=== PATIENT | male | born 1955 | race Hispanic/Latino ===

== ENCOUNTER 2016-11-10 19:20 | Inpatient (IN) | payer MEDICARE ==
--- NOTE | 2016-11-10 19:26 | C.PDOC ---
History Of Present Illness Patient presents to the ER for a possible seizure. states she witnessed seizure like activity, patient does not remember the event. Patient has Hx of NIDDM, non complaint with medication; he is also on xanax which he stopped taking a few days ago. Patient reports he took 2 testosterone pills today that he ordered over the internet. Patient does not seem post ictal; denies dizziness , weakness, numbness, or headache. Time Seen by Provider: 11/10/16 19:26 History Per: Patient History/Exam Limitations: no limitations Recent Seizure Activity Began: Just Before Arrival Number Of Seizures: One Length Of Seizures (Duration): Unknown Quality Of Seizure: Generalized Precipitating Factor(s): Other (Not known) Post-ictal Period: No Severity: None Pain Scale Rating Of: 0 Recent travel outside of the [place]: No Past Medical History Reviewed: Historical Data, Nursing Documentation, Vital Signs Vital Signs: Last Vital Signs Temp 98.7 F 11/10/16 22:53 Pulse 88 11/10/16 22:53 Resp 18 11/10/16 22:53 BP 133/95 H 11/10/16 22:53 Pulse Ox 100 11/10/16 23:57 - Medical History PMH: Diabetes Surgical History: No Surg Hx Family History: States: No Known Family Hx Review Of Systems Constitutional: Negative for: Fever, Chills Eyes: Negative for: Vision Change ENT: Negative for: Throat Pain Cardiovascular: Negative for: Chest Pain Respiratory: Negative for: Shortness of Breath Gastrointestinal: Negative for: Nausea, Vomiting Genitourinary: Negative for: Dysuria Skin: Negative for: Rash Neurological: Positive for: Seizures. Negative for: Weakness, Numbness, Headache, Dizziness Psych: Negative for: Anxiety Physical Exam - Physical Exam Appears: Non-toxic Skin: Warm, Dry Head: Normacephalic Eye(s): bilateral: Normal Inspection, PERRL, EOMI Oral Mucosa: Moist Neck: Supple Chest: Symmetrical, No Tenderness Cardiovascular: Rhythm Regular, No Murmur Respiratory: No Rales, No Rhonchi, No Wheezing Gastrointestinal/Abdominal: Soft, No Tenderness Extremity: No Tenderness Extremity: Bilateral: Atraumatic Pulses: Left Dorsalis Pedis: Normal, Right Dorsalis Pedis: Normal Neurological/Psych: Oriented x3, Normal Speech, Normal Cognition Gait: Steady ED Course And Treatment - Laboratory Results Result Diagrams: 11/10/16 20:04 11/10/16 20:04 ECG: Interpreted By Me, Viewed By Me ECG Rhythm: Sinus Rhythm (81), Nonspecific Changes O2 Sat by Pulse Oximetry: 100 Pulse Ox Interpretation: Normal - CT Scan/US CT Head Other Rad Studies (CT/US): Read By Radiologist, Radiology Report Reviewed CT/US Interpretation: EXAM: CT Head Without Intravenous Contrast. CLINICAL HISTORY: 61 years old, male; Signs and symptoms; Syncope and collapse; Additional info: Seizure. TECHNIQUE: Axial computed tomography images of the head/brain without intravenous contrast. This CT exam. was performed using one or more of the following dose reduction techniques: automated exposure. control , adjustment of the mA and/or kV according to patient size, and/or use of iterative. reconstruction technique. EXAM DATE/TIME: Exam ordered 11/10/2016 7: 48 PM. COMPARISON: No relevant prior studies available. FINDINGS: Brain: Unremarkable. No hemorrhage. No significant white matter disease. No edema. Ventricles: Unremarkable. No ventriculomegaly. Bones/joints: Unremarkable. No acute fracture. Soft tissues: Unremarkable. Sinuses: Unremarkable as visualized. No acute sinusitis. Mastoid air cells: Unremarkable as visualized. No mastoid effusion. IMPRESSION: Normal head/brain CT. Progress Note: Blood work, CT head, EKG, CXR, and urinalysis ordered. Disposition Discussed With : Jose Tomas Comment: accepted the pt on his service and took over the care at 1:37AM Doctor Will See Patient In The: Hospital Counseled Patient/Family Regarding: Studies Performed, Diagnosis - Disposition Disposition: HOSPITALIZED Disposition Time: 19:26 Condition: FAIR - Clinical Impression Clinical Impression: Bipolar 1 disorder, Opioid use disorder, severe, dependence - Scribe Statement The provider has reviewed the documentation as recorded by the Scribe Eddie Ni All medical record entries made by the Scribe were at my direction and personally dictated by me. I have reviewed the chart and agree that the record accurately reflects my personal performance of the history, physical exam, medical decision making, and the department course for this patient. I have also personally directed, reviewed, and agree with the discharge instructions and disposition. Decision To Admit - Pt Status Changed To: Hospital Disposition Of: Inpatient - Admit Certification Admit to Inpatient:: After my assessment, the patient will require hospitalization for at least two midnights. This is because of the severity of symptoms shown, intensity of services needed, and/or the medical risk in this patient being treated as an outpatient. - InPatient: Physician Admission Certification: I certify that this patient requires 2 or more midnights of care for the following reason:: After my assessment, the patient will require hospitalization for at least two midnights. This is because of the severity of symptoms shown, intensity of services needed, and/or the medical risk in this patient being treated as an outpatient. - . Bed Request Type: Psychiatry Admitting Physician: Jose Tomas Patient Diagnosis: Bipolar 1 disorder, Opioid use disorder, severe, dependence
[2016-11-10 20:06] LABS: BASO % 0.5 % (0.0-2.0); EOS # 0.1 K/uL (0.0-0.7); EOS % 1.4 % (0.0-4.0); HEMOGLOBIN 15.3 g/dL (12.0-18.0); LYMPH # 2.1 K/uL (1.0-4.3); LYMPH % 20.7 % (20.0-40.0); MEAN CELL VOLUME 89.7 fL (80.0-94.0); MEAN CORPUSCULAR HEMOGLOBIN 30.7 pg (27.0-31.0); MEAN CORPUSCULAR HGB CONC 34.2 g/dL (33.0-37.0); MEAN PLATELET VOLUME 7.5 fL (7.2-11.7); MONO # 1.1 K/uL (0.0-0.8); MONO % 10.8 % (0.0-10.0); NEUT # 6.7 K/uL (1.8-7.0); NEUT % 66.6 % (50.0-75.0); RBC 4.98 Mil/uL (4.40-5.90); RED CELL DISTRIBUTION WIDTH 12.8 % (11.5-14.5); WHITE BLOOD COUNT 10.1 K/uL (4.8-10.8)
--- NOTE | 2016-11-10 20:29 | CT ---
EXAM: CT Head Without Intravenous Contrast CLINICAL HISTORY: 61 years old, male; Signs and symptoms; Syncope and collapse; Additional info: Seizure TECHNIQUE: Axial computed tomography images of the head/brain without intravenous contrast. This CT exam was performed using one or more of the following dose reduction techniques: automated exposure control, adjustment of the mA and/or kV according to patient size, and/or use of iterative reconstruction technique. EXAM DATE/TIME: Exam ordered 11/10/2016 7:48 PM COMPARISON: No relevant prior studies available. FINDINGS: Brain: Unremarkable. No hemorrhage. No significant white matter disease. No edema. Ventricles: Unremarkable. No ventriculomegaly. Bones/joints: Unremarkable. No acute fracture. Soft tissues: Unremarkable. Sinuses: Unremarkable as visualized. No acute sinusitis. Mastoid air cells: Unremarkable as visualized. No mastoid effusion. IMPRESSION: Normal head/brain CT.
[2016-11-10 20:47] LABS: VENOUS BLOOD GAS BASE EXCESS -2.6 mmol/L (0.0-2.0); VENOUS BLOOD GAS PCO2 46 mmHg (40-60); VENOUS BLOOD GAS PO2 14 mm/Hg (30-55); VENOUS BLOOD PH 7.32 (7.32-7.43)
[2016-11-10 21:26] LABS: ALBUMIN 4.5 g/dL (3.5-5.0)
[2016-11-10 21:29] LABS: ALB/GLOB RATIO 1.6 (1.0-2.1); ALT/SGPT 24 U/L (21-72); AST/SGOT 25 U/L (17-59); BLOOD UREA NITROGEN 20 mg/dL (9-20); GFR AFRICAN-AMERICAN > 60; GFR NON-AFRICAN AMERICAN > 60
[2016-11-10 21:30] LABS: CALCIUM 9.4 mg/dl (8.6-10.4)
[2016-11-10 21:51] LABS: URINE BILIRUBIN NEGATIVE (NEGATIVE); URINE CLARITY Clear (Clear); URINE COLOR Straw (YELLOW); URINE GLUCOSE (UA) NORMAL (Normal); URINE LEUKOCYTE ESTERASE NEG Leu/uL (Negative); URINE NITRATE NEGATIVE (NEGATIVE); URINE PROTEIN NEGATIVE (NEGATIVE); URINE UROBILINOGEN NORMAL mg/dL (0.2-1.0)
[2016-11-10 21:53] LABS: URINE BLOOD TRACE (NEGATIVE)
[2016-11-10] MEDS ORDERED: Sodium Chloride 0.9% 1,000 ML IV ONE ×2 (21:54→22:00)
[2016-11-10 22:22] LABS: BARBITURATES, UR NEGATIVE (NEGATIVE)
[2016-11-10 22:23] LABS: BENZODIAZEPINES, UR NEGATIVE (NEGATIVE)
[2016-11-10 22:26] LABS: OPIATES, UR NEGATIVE (NEGATIVE); PHENCYCLIDINE, UR NEGATIVE (NEGATIVE)
[2016-11-10] MEDS ORDERED: Sodium Chloride 0.9% 2,000 ML ONE (22:28)
[2016-11-11 01:51] VITALS: O2SAT 98
--- NOTE | 2016-11-11 04:22 | PCM.BM ---
<NathanFarhat - Last Filed: 11/11/16 04:20> Treatment Plan Problems - Problems identified on initial assessmt Depression Date Initiated: 11/11/16 Time Initiated: 02:30 Assessment reference: NA Status: Active Benzodiazepene Abuse Date Initiated: 11/11/16 Time Initiated: 02:30 Assessment reference: NA Status: Active Treatment assets and liabiliti Patient Assests: motivated, ADL independent, good support system Patient Liabilities: relationship conflicts, medical problems (Hypertension, Type 2 diabetes) - Milieu Protocol Maintain good personal hygiene: daily Encourage regular showers, daily Remind patient to perform daily oral care Maintain personal safety: every shift Educate patient to report safety concerns to staff, every shift Monitor environment for contraband/sharps Medication safety: Monitor for expected outcome, potential side effects: every shift, Assess barriers to learning: every shift, Assess readiness for medication education: every shift <Marie Simms - Last Filed: 11/11/16 11:49> - Diagnosis (1) Bipolar 1 disorder Status: Acute Interventions: 11/11/16 11:49 * Assess/adjust medications daily and /or as needed * See patient on an individual basis 7x/week to assess level of manic behaviors and stability * Discuss risks, benefits, side effects and alternatives of medications * <Missy Bradley - Last Filed: 11/12/16 10:46> Family Contact Family involvement: Family/SO is involved Family contact: Patient agrees to contact Family contact name: -Laverne Dawson Family contacted how many times per week?: 1 - Goals for Treatment Patient goals for treatment: "I need treatment." Discharge/Continuing Care - Education Needs Education Needs: Patient Medication, Patient Coping Skills, Patient Community resources - Discharge Discharge Criteria: Tolerates medication w/o severe side effects, No longer exhibiting s/s of withdrawal Discharge to:: Home, With Family - Treatment Team Participation Was Patient/Family/SO present at Treatment Team Meeting: Yes
--- NOTE | 2016-11-11 08:51 | RAD ---
PROCEDURE: CHEST RADIOGRAPH, 1 VIEW HISTORY: Seizure COMPARISON: None available. FINDINGS: LUNGS: Mild venous congestion. PLEURA: No pneumothorax or pleural fluid seen. CARDIOVASCULAR: Normal. OSSEOUS STRUCTURES: No significant abnormalities. VISUALIZED UPPER ABDOMEN: Normal. OTHER FINDINGS: None. IMPRESSION: Mild venous congestion.
--- NOTE | 2016-11-11 10:54 | CARD ---
APPROVED REPORT EKG Measurement Heart [id number] <Conclusion> Normal sinus rhythm Normal ECG
--- NOTE | 2016-11-11 13:19 | PCM.PSYCH ---
Addendum entered and electronically signed by Matthew Bhardwaj 11/11/16 14:36: The patient reported taking xanax for the past 4 years and percocet for the past 12 years but claims the abuse of the these drugs started recently. Original Note: Initial Psychiatric Evaluation - Initial Psychiatric Evaluation Chief Complaint (in patient's own words): I think I had a seizure because I was withdrawing from xanax Patient's Reaction to Hospitalization: cooperative History of Present Illness and Precipitating Events: The patient was seen and discussed with the team and the chart was reviewed. Mr Dawson is a 61 year old male who presented to the ED for a first time occurrence of a possible seizure. Per ED note the patient reported taking 2 testosterone pills prior to the seizure activity. Upon our interview, the patient believes his seizure activity was a withdrawal symptom from his recent xanax abuse. The patient states he was being prescribed xanax and percocet from his psychiatrist, Dr Mcgrath, from the [facility], [place]. He was prescribed xanax 4mg and percocet however the patient stated that he began abusing these medications to alleviate the emotional pain he feels from the loss of his son. His son from a complication of Menkes disease 4 years ago and Nov 09 is the anniversary of his . During our interview the patient showed symptoms of hypomania. He was very talkative and had pressure to keep talking. He showed flight of ideas or subjective experience that thoughts are racing. He conveyed preoccupation with sexuality in the context of him believing he might be bisexual. This is his third psychiatric associated hospitalization, with a previous admission at [facility] and [facility]. He was previously prescribed seroquel which the patient claims "didn't work well for me". He states he has taken wellbutrin in the past. He states he used to see a psychotherapist at age 21. An attempt was made to contact his Laverne ([phone]) for further past psychiatric history. He denies suicidal ideations, homicidal ideations, auditory or visual hallucinations. He denies EtOh abuse. He denies smoking. He denies pcp, ecstasy, cocaine, ketamine, heroin, use. He admits to occasional marijuana use and LSD use in his youth. He is , lives with his at home and had one child who is at age 21. He is currently unemployed and on disability with a diagnosis of bipolar disorder. He states he has a master's degree and worked as an medication assistant in the past. Psych Hx: Bipolar disorder; 3 previous psychiatric associated hospitalizations; Other Medical Hx: DM, HTN Social Hx: lives with at home; 1 son, at age 21 from complications of menkes disease; on disability; Master's degree, former medication assistant; plays [employer] Fam Hx: EtOH abuse on father's side; Father has depression Legal Issues: None Current Medications: Active Medications Generic Name Dose Route Start Last Admin Trade Name Freq PRN Reason Stop Dose Admin Aripiprazole 5 mg 11/11/16 18:00 Abilify PO QPM SOLITARIO Diphenhydramine HCl 50 mg 11/11/16 03:27 11/11/16 03:44 Benadryl PO 50 mg HS PRN Administration Insomnia Divalproex Sodium 500 mg 11/11/16 12:[address] PO BID SOLITARIO Gabapentin 300 mg 11/11/16 14:00 Neurontin PO TID SOLITARIO Hydroxyzine HCl 50 mg 11/11/16 11:46 Atarax PO Q6H PRN Anxiety Ibuprofen 600 mg 11/11/16 11:46 Motrin Tab PO Q6H PRN Pain, moderate (4-7) Levetiracetam 250 mg 11/11/16 03:30 11/11/16 10:08 Keppra PO 250 mg BID SOLITARIO Administration Metformin HCl 1,000 mg 11/11/16 10:00 11/11/16 10:08 Glucophage PO 1,000 mg BID SOLITARIO Administration Pneumococcal Polyvalent Vaccine 0.5 ml 11/13/16 10:00 Pneumovax 23 Vaccine IM 11/13/16 10:01 .ONCE ONE Trazodone HCl 100 mg 11/11/16 11:46 Desyrel PO HS PRN Insomnia Past Psychiatric History - Past Psychiatric History Prior Professional Help: outpatient psychiatrist in [facility] area [facility]: [facility]; [facility] History of Abuse: xanax abuse; percocet abuse History of ETOH/Drug Use: occasional marijuana use; LSD use as teenager History of Family Illness: EtOH abuse on father's side; Father has depression Pertinent Medical Hx (Current Medical&Sleep Prob, Allergies): Allergies Allergy/AdvReac Type Severity Reaction Status Date / Time No Known Allergies Allergy Verified 11/10/16 19:46 ALPRAZolam [Xanax] 1 mg PO QID 11/10/16 Desvenlafaxine Succinate [Pristiq ER] 25 mg PO DAILY 11/10/16 Gabapentin 300 mg PO DAILY 11/10/16 Lisinopril [Zestril] 20 mg PO DAILY 11/10/16 MetFORMIN [glucOPHAGE] 1,000 mg PO BID 11/10/16 Oxycodone HCl/Acetaminophen [Percocet 10-325 mg Tablet] 1 each PO Q6H 11/10/16 buPROPion [Bupropion HCl] 100 mg PO DAILY 11/10/16 glyBURIDE [Micronase] 2 mg PO DAILY 11/10/16 Review of Systems - Neurological Neurological: Behavioral Changes, Restless Legs. absent: Confusion, Dizziness, Headaches - Psychiatric Psychiatric: Anxiety, Depression. absent: Auditory Hallucinations, Homicidal Ideation, Suicidal Ideation, Visual Hallucinations Mental Status Examination - Personal Presentation Personal Presentation: Looks stated age - Affect Affect: Broad - Motor Activity Motor Activity: Calm - Reliability in Providing Information Reliability in Providing Information: Good - Speech Additional comments: pressured speech; rapid speech; attention was drawn to unimportant or irrelevant details - Mood Mood: Neutral - Formal Thought Process Formal Thought Process: Loosening of associations - Cognitive Functions Orientation: Person, Place, Situation, Time Sensorium: Alert Attention/Concentration: Attentive Abstract Thinking: [place] Estimate of Intelligence: Average Judgement: Intact, as evidence by: Insight regarding need for hospitalization Memory: Recent intact, as evidence by: Ability to recall events of the day - Risk Risk: Withdrawal - Strength & Assets Inventory Strength & Assets Inventory: Family support, Education, Employment history, Interests/hobbies, Cooperative DSM 5 DX - DSM 5 DSM 5 Diagnosis: Bipolar 1 disorder, Opioid use disorder, severe, dependence - Recommended/Plan of Treatment Treatment Recommendations and Plan of Treatment: CBT Psychoeducation Supportive therapy, group therapy, individual therapy Aripiprazole 5mg po qpm divalproex 500mg po bid hydroxyzine 50mg po q6 prn levetiracetam 250mg po bid trazodone 100mg po hs prn Assess/adjust medications daily and /or as needed See patient on an individual basis 7x/week to assess level of manic behaviors and stability Discuss risks, benefits, side effects and alternatives of medications time spent 35 mins Prognosis: good with treatment
[2016-11-11] MEDS: Divalproex 500 mg DR Tab PO SCH ×2 (13:49→17:29)
[2016-11-12] MEDS: Divalproex 500 mg DR Tab PO SCH ×2 (09:43→17:55)
[2016-11-12] MEDS: Brimonidine 0.2% Opth Sol (5ml) OS SCH ×2 (13:48→18:10)
--- NOTE | 2016-11-12 14:23 | PCM.PYCHPN ---
Psychiatric Progress Note - Psychiatric Progress Note Patient seen today, length of contact: 19 mins Patient Chief Complaint: "I'm having issues with my eye" Problems Identified/Issues Discussed: The pt is seen, chart reviewed, case discussed with staff. The pt is compliant with medications and reports no side-effects. The pt c/o of left eye irritation for which he seens opthomologist outpatient. Pt c/o of headache Symptoms are improving but needs more time to stabilize. Speech was normal today After care discussed, support and psychoeducation given. Medication Change: Yes (added brimonidine to treat eye and glyburide for DM) Mental Status Examination - Cognitive Function Orientation: Person, Place, Situation, Time Memory: Intact Attention: WNL Concentration: WNL Association: WNL Fund of Knowledge: WNL - Mood Mood: Neutral - Affect Affect: Broad - Speech Speech: Appropriate - Language Language: Word Retrieval - Formal Thought Process Formal Thought Process: No Impairment - Suicidal Ideation Suicidal Ideation: No - Homicidal Ideation Homicidal Ideation: No Goal/Treatment Plan - Goal/Treatment Plan Need for Continued Stay: Severe depression anxiety, Discharge may exacerbated symptoms Progress Toward Problem(s) and Goals/Treatment Plan: CBT Psychoeducation Supportive therapy, group therapy, individual therapy Aripiprazole 5mg po qpm divalproex 500mg po bid trazodone 100mg po hs prn gabapentin 300mg po tid brimonidine 0.2% for eye lisinopril 20mg po daily metformin 100mg po bid glyburide 5mg po qam rosuvastatin 10mg po hs Assess/adjust medications daily and /or as needed See patient on an individual basis 7x/week to assess level of manic behaviors and stability Discuss risks, benefits, side effects and alternatives of medications time spent 19 mins
[2016-11-13] MEDS: Brimonidine 0.2% Opth Sol (5ml) OS SCH (09:25)
[2016-11-13] MEDS: Divalproex 500 mg DR Tab PO SCH ×2 (09:26→17:22)
[2016-11-13] MEDS ORDERED: Pneumococcal 23-Valent Vaccine IM ONE (10:00)
[2016-11-13] MEDS: Patient's Own Drops OS SCH ×2 (13:15→17:24)
--- NOTE | 2016-11-13 20:07 | PCM.PYCHPN ---
Psychiatric Progress Note - Psychiatric Progress Note Patient seen today, length of contact: 17 min Patient Chief Complaint: "I'm very tired" Problems Identified/Issues Discussed: The pt is seen, chart reviewed, case discussed with staff. Support given, CBT and MO used briefly No new symptoms reported, improving slowly and needs some more time No SEs from medications, risks discussed. After care discussed, will go to [facility] Medication Change: No Medical Record Reviewed: Yes Mental Status Examination - Cognitive Function Orientation: Person, Place, Situation, Time Memory: Intact Attention: WNL Concentration: WNL Association: WNL Fund of Knowledge: WNL - Mood Mood: Neutral - Affect Affect: Broad - Speech Speech: Appropriate - Language Language: Word Retrieval - Formal Thought Process Formal Thought Process: No Impairment - Suicidal Ideation Suicidal Ideation: No - Homicidal Ideation Homicidal Ideation: No Goal/Treatment Plan - Goal/Treatment Plan Need for Continued Stay: Discharge may exacerbated symptoms, Severe functional impairment Progress Toward Problem(s) and Goals/Treatment Plan: Continue medications Support and psychoeducation daily Attend groups and activities daily After care planning by SHERYL TRENT Drops changed to home med
[2016-11-14] MEDS: Divalproex 500 mg DR Tab PO SCH ×2 (09:28→17:29)
[2016-11-14] MEDS: Patient's Own Drops OS SCH ×3 (09:28→17:29)
--- NOTE | 2016-11-14 19:33 | PCM.PYCHPN ---
Psychiatric Progress Note - Psychiatric Progress Note Patient seen today, length of contact: 17 min Patient Chief Complaint: "I'm very tired" Problems Identified/Issues Discussed: The pt is seen, chart reviewed, case discussed with staff. Support given, CBT and NE used briefly again No new symptoms reported, improving slowly and needs some more time No SEs from medications, risks discussed. After care discussed, will go to [facility] - he agrees and will also see his ophth and PCP Medication Change: Yes (hctz ) Medical Record Reviewed: Yes Mental Status Examination - Cognitive Function Orientation: Person, Place, Situation, Time Memory: Intact Attention: WNL Concentration: WNL Association: WNL Fund of Knowledge: WNL - Mood Mood: Neutral - Affect Affect: Broad - Speech Speech: Appropriate - Language Language: Word Retrieval - Formal Thought Process Formal Thought Process: No Impairment - Suicidal Ideation Suicidal Ideation: No - Homicidal Ideation Homicidal Ideation: No Goal/Treatment Plan - Goal/Treatment Plan Need for Continued Stay: Discharge may exacerbated symptoms, Severe functional impairment Progress Toward Problem(s) and Goals/Treatment Plan: Continue medications Support and psychoeducation daily Attend groups and activities daily After care planning by SHERYL TRENT Drops changed to home med
[2016-11-15] MEDS: Divalproex 500 mg DR Tab PO SCH ×2 (09:12→17:24)
[2016-11-15] MEDS: Patient's Own Drops OS SCH ×3 (09:14→17:24)
--- NOTE | 2016-11-15 14:00 | PCM.PYCHPN ---
Psychiatric Progress Note - Psychiatric Progress Note Patient seen today, length of contact: 16 min Patient Chief Complaint: "I'm OK today" Problems Identified/Issues Discussed: The pt is seen, chart reviewed, case discussed with staff. Support given, CBT and RI used briefly re his benzo use and opioids No new symptoms reported, improving slowly and needs more time No SEs from medications, risks discussed. After care discussed - [facility] Medication Change: No Medical Record Reviewed: Yes Mental Status Examination - Cognitive Function Orientation: Person, Place, Situation, Time Memory: Intact Attention: WNL Concentration: WNL Association: WNL Fund of Knowledge: WNL - Mood Mood: Neutral - Affect Affect: Broad - Speech Speech: Appropriate - Language Language: Word Retrieval - Formal Thought Process Formal Thought Process: No Impairment - Suicidal Ideation Suicidal Ideation: No - Homicidal Ideation Homicidal Ideation: No Goal/Treatment Plan - Goal/Treatment Plan Need for Continued Stay: Discharge may exacerbated symptoms, Severe functional impairment Progress Toward Problem(s) and Goals/Treatment Plan: Continue medications Support and psychoeducation daily Attend groups and activities daily After care planning by SHERYL TRENT Drops changed to home med [facility] level and labs soon Estimated Date of D/C: 11/17/16 - Smoking Cessation Smoking Cessation Initiated: Yes
[2016-11-16 07:29] VITALS: BP 143/74; PULSE 74; RESP 20; TEMP 98.6
[2016-11-16 09:04] LABS: BASO % 0.6 % (0.0-2.0); EOS # 0.2 K/uL (0.0-0.7); EOS % 2.1 % (0.0-4.0); HEMOGLOBIN 16.6 g/dL (12.0-18.0); LYMPH # 2.1 K/uL (1.0-4.3); LYMPH % 24.5 % (20.0-40.0); MEAN CELL VOLUME 89.5 fL (80.0-94.0); MEAN CORPUSCULAR HEMOGLOBIN 30.5 pg (27.0-31.0); MEAN CORPUSCULAR HGB CONC 34.1 g/dL (33.0-37.0); MONO # 0.7 K/uL (0.0-0.8); MONO % 7.8 % (0.0-10.0); NEUT # 5.5 K/uL (1.8-7.0); NRBC % 0.1 % (0.0-2.0); RBC 5.43 Mil/uL (4.40-5.90); RED CELL DISTRIBUTION WIDTH 12.9 % (11.5-14.5); WHITE BLOOD COUNT 8.4 K/uL (4.8-10.8)
[2016-11-16 09:18] LABS: ALBUMIN 4.4 g/dL (3.5-5.0)
[2016-11-16 09:20] LABS: GFR AFRICAN-AMERICAN > 60; GFR NON-AFRICAN AMERICAN > 60
[2016-11-16 09:21] LABS: ALB/GLOB RATIO 1.5 (1.0-2.1); ALT/SGPT 33 U/L (21-72); AST/SGOT 22 U/L (17-59); BLOOD UREA NITROGEN 18 mg/dL (9-20)
[2016-11-16 09:22] LABS: CALCIUM 9.6 mg/dl (8.6-10.4)
[2016-11-16] MEDS: Divalproex 500 mg DR Tab PO SCH (09:55)
[2016-11-16] MEDS: Patient's Own Drops OS SCH (09:55)
--- NOTE | 2016-11-16 10:24 | PCM.PYCHDC ---
Mental Status Examination - Mental Status Examination Orientation: Person, Place, Situation, Time Memory: Intact Mood: Neutral Affect: Broad Speech: Appropriate Attention: WNL Concentration: WNL Association: WNL Fund of Knowledge: WNL Formal Thought Process: No Impairment Suicidal Ideation: No Current Homicidal Ideation?: No Discharge Summary - Discharge Note Reason for Hospitalization: Hypomanic (somewhat manic) episode, plus abusing benzos and opiates. Psychiatric History (includes Medical, Family, Personal Hx): Bipolar d/o Laboratory Data: Abnormal Lab Results 11/16/16 11/16/16 11/16/16 07:21 08:54 08:54 WBC 8.4 RBC 5.43 Hgb 16.6 Hct 48.6 MCV 89.5 MCH 30.5 MCHC 34.1 RDW 12.9 Plt Count 233 MPV 8.0 Neut % (Auto) 65.0 Lymph % (Auto) 24.5 [place] % (Auto) 7.8 Eos % (Auto) 2.1 Baso % (Auto) 0.6 Neut # 5.5 Lymph # 2.1 [place] # 0.7 Eos # 0.2 Baso # 0.0 Sodium 142 Potassium 4.5 Chloride 96 L Carbon Dioxide 28 Anion Gap 23 H BUN 18 Creatinine 1.2 Est GFR ( Amer) > 60 Est GFR (Non-Af Amer) > 60 POC Glucose (mg/dL) 84 Random Glucose 151 H Calcium 9.6 Total Bilirubin 0.8 AST 22 ALT 33 Alkaline Phosphatase 61 Total Protein 7.5 Albumin 4.4 Globulin 3.0 Albumin/Globulin Ratio 1.5 Valproic Acid 11/16/16 08:54 WBC RBC Hgb Hct MCV MCH MCHC RDW Plt Count MPV Neut % (Auto) Lymph % (Auto) [place] % (Auto) Eos % (Auto) Baso % (Auto) Neut # Lymph # [place] # Eos # Baso # Sodium Potassium Chloride Carbon Dioxide Anion Gap BUN Creatinine Est GFR ( Amer) Est GFR (Non-Af Amer) POC Glucose (mg/dL) Random Glucose Calcium Total Bilirubin AST ALT Alkaline Phosphatase Total Protein Albumin Globulin Albumin/Globulin Ratio Valproic Acid 72.6 Consultations:: List each consultation separately and include: 1. Reason for request. 2. Findings. 3. Follow-up Summary of Hospital Course include:: 1. Description of specific treatment plan utilized for patients during their course of treatmen. 2. Summarize the time- course for resolution of acute symptoms and/or regressed behaviors. 3. Describe issues identified and worked on during hospitalization. 4. Describe medication utilized. 5. Describe medical problems identified and treated. 6. Reassessment of suicide risk Summary of Hospital Course: The pt was admitted for bipolar disorder and opioid use disorder and started on treatment with psychotherapy, support, psychoeducation and medications. MA and CBT used. The pt attended groups and activities, as well as milieu therapy. All the risks and benefits of medications are discussed and the patient understood and agreed. The pt improved with the treatments provided. The pt states that he feels good. He is no longer manic or hypomanic and has no wdw sxs After care discussed with the patient; he will attend CRC but he will also follow up with a physician about his eye and his own PCP. - Final Diagnosis (DSM 5) Condition upon Discharge: IMPROVED DSM 5: Bipolar 1 d/o - manic Sedative hypnotic use d/o - moderate Opioid use d/o - moderate Disposition: HOME/ ROUTINE Follow-up Treatment Plan: Continue below medications after discharge. Of note, he was on depakote but he indicated that he would not continue it b/c of "bad dreams" Follow after care plan as discussed above. Use relapse prevention skills. Return to ER or call 911 if suicidal, homicidal or symptoms relapse. Stay away from stress, alcohol and drugs. Use relaxation techniques. See primary doctor once a year and get labs. Consider MAT Prescriptions/Medication Reconciliation: ARIPiprazole [Abilify] 10 mg PO QPM #30 tab Gabapentin [Neurontin] 300 mg PO TID #90 cap glyBURIDE [Micronase] 5 mg PO QAM #30 tab hydrOXYzine HCl [Atarax] 50 mg PO Q8 #60 tab Lisinopril [Zestril] 20 mg PO DAILY #30 tab metFORMIN [glucOPHAGE] 1,000 mg PO BID #60 tab Rosuvastatin Calcium [Crestor] 10 mg PO HS #30 tab traZODone [Desyrel] 100 mg PO HS PRN #30 tab PRN Reason: Insomnia - Smoking Cessation Smoking Cessation Medication prescribed: No - Antipsychotic Medications Pt discharged on 2 or more routine antipsychotic medications: No
== END 2016-11-16 11:20 | disposition home or self-care (01) | DRG 895 ==
LOC: C.ER 19:20 → C.5E 11-11 01:39
PROVIDERS: ADMIT Psychiatry & Neurology Psychiatry; ATTEND Psychiatry & Neurology Psychiatry
PROC: HZ2ZZZZ Detoxification Services for Substance Abuse Treatment (ICD-10-PCS; principal; 2016-11-11)
PROC: HZ52ZZZ Individual Psychotherapy for Substance Abuse Treatment, Cognitive-Behavioral (ICD-10-PCS; 2016-11-11)
PROC: HZ42ZZZ Group Counseling for Substance Abuse Treatment, Cognitive-Behavioral (ICD-10-PCS; 2016-11-11)
PROC: HZ59ZZZ Individual Psychotherapy for Substance Abuse Treatment, Supportive (ICD-10-PCS; 2016-11-11)
PROC: HZ56ZZZ Individual Psychotherapy for Substance Abuse Treatment, Psychoeducation (ICD-10-PCS; 2016-11-11)
PROC: HZ46ZZZ Group Counseling for Substance Abuse Treatment, Psychoeducation (ICD-10-PCS; 2016-11-11)
DX: F11.20 Opioid dependence, uncomplicated (principal); F31.9 Bipolar disorder, unspecified; F13.10 Sedative, hypnotic or anxiolytic abuse, uncomplicated; E11.9 Type 2 diabetes mellitus without complications; Z91.14 Patient's other noncompliance with medication regimen; F12.90 Cannabis use, unspecified, uncomplicated

== ENCOUNTER 2017-09-29 19:01 | Emergency (ER) | payer MEDICARE ==
[2017-09-29 19:36] VITALS: PULSE 85
[2017-09-29] MEDS ORDERED: Sodium Chloride 0.9% 1,000 ML IV ONE (20:14)
--- NOTE | 2017-09-29 20:14 | C.PDOC ---
Time Seen by Provider: 09/29/17 20:13 Chief Complaint (Nursing): Dizziness/Lightheaded Past Medical History Vital Signs: Last Vital Signs Temp 99.2 F 09/29/17 19:27 Pulse 85 09/29/17 19:27 Resp 16 09/29/17 19:27 BP 125/76 09/29/17 19:27 Pulse Ox 99 09/29/17 19:27 - Medical History PMH: Anxiety, Back Problems, Bipolar Disorder, Depression, Diabetes, HTN, Hypercholesterolemia, Seizures (Yesterday) Denies: Hepatitis, HIV, Sexually Transmitted Disease - [facility] Procedures DETOXIFICATION SERVICES FOR SUBSTANCE ABUSE TREATMENT (11/11/16) GROUP PULLER OVER FOR SUBSTANCE ABUSE TREATMENT, PSYCHOEDUCATION (11/11/16) GROUP PULLER OVER FOR SUBSTANCE ABUSE, COGNITIVE BEHAVIORAL (11/11/16) INDIV PSYCHOTHERAPY FOR SUBSTANCE ABUSE TREATMENT, SUPPORT (11/11/16) INDIV PSYCHOTHERAPY FOR SUBSTANCE ABUSE, COGNITIV BEHAVIORAL (11/11/16) INDIV PSYCHOTHERAPY FOR SUBSTANCE ABUSE, PSYCHOEDUCATION (11/11/16) - Social History Hx Alcohol Use: Yes Hx Substance Use: No - Immunization History Hx Tetanus Toxoid Vaccination: No Hx Influenza Vaccination: No Hx Pneumococcal Vaccination: Yes ED Course And Treatment O2 Sat by Pulse Oximetry: 99 Disposition Counseled Patient/Family Regarding: Studies Performed, Diagnosis - Disposition Disposition Time: 20:14
[2017-09-29 20:35] LABS: BASO % 0.4 % (0.0-2.0); EOS # 0.3 K/uL (0.0-0.7); EOS % 3.1 % (0.0-4.0); LYMPH # 2.3 K/uL (1.0-4.3); LYMPH % 26.3 % (20.0-40.0); MEAN CELL VOLUME 85.3 fL (80.0-94.0); MEAN CORPUSCULAR HEMOGLOBIN 29.7 pg (27.0-31.0); MEAN CORPUSCULAR HGB CONC 34.8 g/dL (33.0-37.0); MEAN PLATELET VOLUME 7.9 fL (7.2-11.7); MONO % 11.3 % (0.0-10.0); NEUT # 5.1 K/uL (1.8-7.0); NEUT % 58.9 % (50.0-75.0); NRBC % 0.3 % (0.0-2.0); RBC 5.03 Mil/uL (4.40-5.90); WHITE BLOOD COUNT 8.7 K/uL (4.8-10.8)
[2017-09-29 20:47] LABS: ALB/GLOB RATIO 1.7 (1.0-2.1); ALBUMIN 4.6 g/dL (3.5-5.0); ALT/SGPT 34 U/L (21-72); AST/SGOT 20 U/L (17-59); BLOOD UREA NITROGEN 19 mg/dL (9-20); CALCIUM 9.5 mg/dl (8.6-10.4); GFR AFRICAN-AMERICAN > 60; GFR NON-AFRICAN AMERICAN > 60
[2017-09-29 20:58] LABS: B-TYPE NATRIURETIC PEPTIDE 35.7 pg/mL (0-900)
--- NOTE | 2017-09-29 21:46 | C.PDOC ---
History Of Present Illness 62-year-old male, whose PMHx includes back pain and bipolar disorder, presents to the ED for evaluation of back pain that occasionally radiates to his left arm since this morning. Patient states he underwent fluorescent retinal imaging to his left eye yesterday by his mixing house operator with no side effects at the time. Patient states he was recently discontinued from Ativan and is properly being medicated for his outpatient psychiatric follow-ups. Patient states his back and arm pains have resolved and denies fever, chills, chest pain, nausea, vomiting, extremity numbness/weakness. Time Seen by Provider: 09/29/17 20:13 Chief Complaint (Nursing): Dizziness/Lightheaded History Per: Patient History/Exam Limitations: no limitations Onset/Duration Of Symptoms: Hrs Current Symptoms Are (Timing): Still Present Additional History Per: Patient Past Medical History Reviewed: Historical Data, Nursing Documentation, Vital Signs Vital Signs: Last Vital Signs Temp 98.8 F 09/29/17 22:00 Pulse 85 09/29/17 22:00 Resp 18 09/29/17 22:00 BP 122/77 09/29/17 22:00 Pulse Ox 99 09/29/17 23:03 - Medical History PMH: Anxiety, Back Problems, Bipolar Disorder, Depression, Diabetes, HTN, Hypercholesterolemia, Seizures (Yesterday) Denies: Hepatitis, HIV, Sexually Transmitted Disease Surgical History: No Surg Hx - [facility] Procedures DETOXIFICATION SERVICES FOR SUBSTANCE ABUSE TREATMENT (11/11/16) GROUP SUPERVISOR METALIZING FOR SUBSTANCE ABUSE TREATMENT, PSYCHOEDUCATION (11/11/16) GROUP SUPERVISOR METALIZING FOR SUBSTANCE ABUSE, COGNITIVE BEHAVIORAL (11/11/16) INDIV PSYCHOTHERAPY FOR SUBSTANCE ABUSE TREATMENT, SUPPORT (11/11/16) INDIV PSYCHOTHERAPY FOR SUBSTANCE ABUSE, COGNITIV BEHAVIORAL (11/11/16) INDIV PSYCHOTHERAPY FOR SUBSTANCE ABUSE, PSYCHOEDUCATION (11/11/16) Family History: States: Unknown Family Hx - Social History Hx Alcohol Use: Yes Hx Substance Use: No - Immunization History Hx Tetanus Toxoid Vaccination: No Hx Influenza Vaccination: No Hx Pneumococcal Vaccination: Yes Review Of Systems Constitutional: Negative for: Fever, Chills Cardiovascular: Negative for: Chest Pain Gastrointestinal: Negative for: Nausea, Vomiting Musculoskeletal: Positive for: Arm Pain (left), Back Pain Physical Exam - Physical Exam Appears: Non-toxic, No Acute Distress, Other (mildly anxious ) Skin: Normal Color, Warm, Dry Head: Atraumatic, Normacephalic Eye(s): right: Normal Inspection, left: Other (scleral injection ) Oral Mucosa: Moist Neck: Supple Chest: Symmetrical, No Deformity, No Tenderness Cardiovascular: Rhythm Regular, No Murmur Respiratory: Normal Breath Sounds, No Rales, No Rhonchi, No Wheezing Back: Normal Inspection, No Vertebral Tenderness, No Paraspinal Tenderness Extremity: Normal ROM, No Tenderness, Capillary Refill (less than 2 seconds ), No Deformity, No Swelling Neurological/Psych: Oriented x3, Normal Speech, Normal Cognition ED Course And Treatment - Laboratory Results Result Diagrams: 09/29/17 20:30 09/29/17 20:30 Lab Interpretation: Normal (trop/bnp neg.) ECG: Interpreted By Me ECG Rhythm: Sinus Rhythm ECG Interpretation: Normal Rate From EC O2 Sat by Pulse Oximetry: 99 (on RA) Pulse Ox Interpretation: Normal - Radiology CXR: Interpreted by Me CXR Interpretation: Yes: No Acute Disease Progress Note: Bloodwork and UA ordered and reviewed. IVF administered. Reevaluation Time: 21:43 Reassessment Condition: Improved (remains asymptomatic) Medical Decision Making Medical Decision Making: normal w/u asymptomatic on arrival and remained same in ED ? anxiety vs delayed reaction from L eye fluorescein stain procedure yesterday, vs exacerbation of chronic back pain since discontinuing Ativan last month. OK for opt f/u. Disposition Doctor Will See Patient In The: Office Counseled Patient/Family Regarding: Studies Performed, Diagnosis - Disposition Referrals: Laverne Hickey APN [Non-Staff] - Disposition: HOME/ ROUTINE Disposition Time: 21:46 Condition: GOOD Additional Instructions: workup negative LOW suspicion of allergic reaction or acute cardiac issues. Instructions: Upper Back Pain Forms: [email or web address] (Kiswahili) - Clinical Impression Clinical Impression: Back pain
[2017-09-29 22:00] VITALS: BP 122/77; RESP 18; TEMP 98.8
[2017-09-29 23:02] VITALS: O2SAT 99
--- NOTE | 2017-09-30 08:20 | RAD ---
PROCEDURE: CHEST RADIOGRAPH, 1 VIEW HISTORY: SOB COMPARISON: 11/10/2016. FINDINGS: LUNGS: The lungs are well inflated and clear. PLEURA: No pneumothorax or pleural fluid seen. CARDIOVASCULAR: Normal. OSSEOUS STRUCTURES: No significant abnormalities. VISUALIZED UPPER ABDOMEN: Normal. OTHER FINDINGS: None. IMPRESSION: No active pulmonary disease.
--- NOTE | 2017-09-30 11:07 | CARD ---
APPROVED REPORT EKG Measurement Heart [id number] <Conclusion> Normal sinus rhythm Normal ECG
== END 2017-09-29 22:00 | disposition home or self-care (01) ==
LOC: C.ER 19:01
DX: M54.9 Dorsalgia, unspecified (principal); I10 Essential (primary) hypertension; E11.9 Type 2 diabetes mellitus without complications; E78.00 Pure hypercholesterolemia, unspecified